=== PATIENT | female | born 1945 | race Caucasian/White ===

== ENCOUNTER 2022-02-25 05:40 | Inpatient (IN) ==
[2022-02-25] MEDS ORDERED: propofoL 200 MG/20 ML VIAL IV ONE (05:55)
[2022-02-25] MEDS ORDERED: ONDANSETRON 4 MG/2 ML VIAL ONE ×3 (05:55→10:28)
[2022-02-25] MEDS ORDERED: LIDOCAINE 2% 5 ML VIAL ONE (05:55)
[2022-02-25] MEDS ORDERED: ROCURONIUM 50 MG/5 ML VIAL IV ONE ×2 (05:55→08:01)
[2022-02-25] MEDS ORDERED: fentaNYL 100 MCG/2 ML VIAL ONE ×2 (05:57→08:12)
[2022-02-25] MEDS ORDERED: LACTATED RINGERS 1,000 ML IV SCH (06:00)
[2022-02-25] MEDS ORDERED: cefTRIAXone 1,000 MG in SODIUM CHLORIDE 0.9% 100 ML IV ONE (06:30)
[2022-02-25] MEDS ORDERED: ALVIMOPAN 12 MG CAPSULE PO ONE (06:30)
[2022-02-25] MEDS ORDERED: SCOPOLAMINE 1.5 MG PATCH TRANSDERM ONE (06:37)
[2022-02-25] MEDS ORDERED: MANNITOL 12.5 GM/50 ML VIAL IV ONE ×2 (06:37→07:05)
[2022-02-25] MEDS ORDERED: MIDAZOLAM 2 MG/2 ML VIAL ONE (06:55)
[2022-02-25] MEDS ORDERED: INDOCYANINE GREEN 25 MG VIAL IV ONE (07:46)
[2022-02-25 08:25] LABS: Hyaline Casts,Urine 3 /LPF (0-3); Mucus,Urine Occasional /LPF (Occasional); RBC,Urine 1 /HPF (0-4); Squamous Epithelial Cell,Urine Occasional /HPF (0-10)
[2022-02-25 08:28] LABS: Bilirubin,Urine Negative (Negative); Blood, Urine Trace mg/dL (Negative); Glucose,Urine (UA) Negative (Negative); Ketones,Urine Negative (Negative); Nitrite,Urine Negative (Negative); Protein,Urine Negative (Negative); Urine Appearance Clear (Clear); Urine Color Yellow (Yellow); Urine Specific Gravity 1.025 (1.001-1.035); Urine Urobilinogen 0.2 eU/dL (<2.0); Urine pH 5.5 (4.5-8.0)
[2022-02-25] MEDS ORDERED: LACTATED RINGERS 1,000 ML IV ONE ×2 (08:39→11:25)
[2022-02-25] MEDS ORDERED: SEVOFLURANE 1 UNIT/15 MINUTE INH ONE (08:39)
[2022-02-25] MEDS ORDERED: GLYCOPYRROLATE 0.4 MG/2 ML VIAL ONE ×2 (10:28→10:31)
[2022-02-25] MEDS ORDERED: NEOSTIGMINE 10 MG/10 ML VIAL ONE (10:28)
[2022-02-25] MEDS ORDERED: HYDROmorphone 1 MG/1 ML SYRINGE ONE (10:41)
[2022-02-25] MEDS ORDERED: ALBUTEROL 2.5 MG/3 ML NEB RESP TX ONE (10:56)
[2022-02-25] MEDS ORDERED: ONDANSETRON 4 MG/2 ML VIAL IV PRN (10:59)
[2022-02-25] MEDS ORDERED: ZOLPIDEM 5 MG TABLET PO PRN (11:03)
[2022-02-25] MEDS ORDERED: HYDROmorphone 1 MG/1 ML SYRINGE IV PRN (11:03)
[2022-02-25] MEDS: DEXTROSE 5% NACL 0.45% 1,000 ML IV SCH (13:55)
[2022-02-25] MEDS ORDERED: ALBUTEROL 1.25 MG/3 ML NEB RESP TX PRN (15:28)
[2022-02-25] MEDS ORDERED: BISACODYL 5 MG TABLET PO PRN (15:29)
[2022-02-25] MEDS ORDERED: MELATONIN 3 MG TABLET PO PRN (15:33)
[2022-02-25] MEDS: hydroCHLOROthiazide 12.5 MG CAPSULE PO SCH (16:50)
[2022-02-25] MEDS: PANTOPRAZOLE 40 MG TABLET PO SCH (20:36)
[2022-02-25] MEDS: ALVIMOPAN 12 MG CAPSULE PO SCH (20:36)
[2022-02-25] MEDS: NEBIVOLOL 10 MG TABLET PO SCH (21:08)
[2022-02-25] MEDS: AMMONIUM LACTATE 12% LOTION 240 ML BOTTLE TOP SCH (21:09)
[2022-02-26] MEDS: DEXTROSE 5% NACL 0.45% 1,000 ML IV SCH (00:09)
[2022-02-26 05:38] LABS: Basophils % 0.2 % (0.0-0.8); Eosinophils % 0.1 % (0.00-10.9); Hematocrit 30.1 VOL% (35.7-47.0); Hemoglobin 9.8 GM/DL (12.0-16.0); Immature Granulocytes % 0.4 %; Immature Granulocytes Absolute 0.04 #; Lymphocytes # 2.3 10*3/uL (1.4-4.0); Lymphocytes % 25.3 % (21.3-54.2); Mean Corpuscular HGB Conc 32.6 GM/DL (32-36); Mean Corpuscular Volume 97.7 FL (87-102); Monocytes # 0.8 10*3/uL (0.11-0.8); Monocytes % 8.2 % (1.7-12.7); Neutrophils % 65.8 % (38.7-73.9); Platelet Count 187 T/CUMM (130-400); Red Blood Count 3.08 MC/CUMM (3.8-5.5); Red Cell Distribution Width 14.1 % (9.3-17.3); White Blood Count 9.2 T/CUMM (4-12)
[2022-02-26 05:56] LABS: Calcium 7.5 MG/DL (8.5-10.1); Osmolality,Calculated 279.4 MOS/KG (273-304); Potassium 3.1 MMOL/L (3.5-5.1)
[2022-02-26] MEDS ORDERED: NON-FORMULARY MEDICATION (Vitamins-Lipotropics [Lipo-Flavonoid Plus] 200-100 mg Tablet) PO SCH (09:00)
[2022-02-26] MEDS: CALCIUM (CARBONATE)/VITAMIN D 600 MG-400 UNIT TABLET PO SCH (09:02)
[2022-02-26] MEDS: AMMONIUM LACTATE 12% LOTION 240 ML BOTTLE TOP SCH ×2 (09:02→23:20)
[2022-02-26] MEDS: ALVIMOPAN 12 MG CAPSULE PO SCH ×2 (09:02→20:50)
[2022-02-26] MEDS: ASCORBIC ACID 500 MG TABLET PO SCH (09:02)
[2022-02-26] MEDS: CHOLECALCIFEROL 400 UNIT TABLET PO SCH (09:02)
[2022-02-26] MEDS ORDERED: POTASSIUM CHLORIDE 20 MEQ TABLET PO PRN (09:46)
[2022-02-26] MEDS: POTASSIUM CHLORIDE 20 MEQ TABLET PO SCH ×2 (10:21→20:50)
[2022-02-26] MEDS ORDERED: CYANOCOBALAMIN 1000 MCG/1 ML VIAL IM SCH (11:30)
[2022-02-26] MEDS: NEBIVOLOL 10 MG TABLET PO SCH (20:49)
[2022-02-26] MEDS: PANTOPRAZOLE 40 MG TABLET PO SCH (20:50)
[2022-02-27 05:29] LABS: Basophils % 0.4 % (0.0-0.8); Eosinophils # 0.2 10*3/uL (0.0-0.87); Eosinophils % 1.7 % (0.00-10.9); Hematocrit 30.9 VOL% (35.7-47.0); Hemoglobin 9.9 GM/DL (12.0-16.0); Immature Granulocytes % 0.4 %; Immature Granulocytes Absolute 0.04 #; Lymphocytes # 1.9 10*3/uL (1.4-4.0); Lymphocytes % 17.4 % (21.3-54.2); Mean Corpuscular Volume 99.7 FL (87-102); Mean Platelet Volume 10.9 FL (9.6-12.0); Monocytes % 9.1 % (1.7-12.7); Platelet Count 180 T/CUMM (130-400); Red Cell Distribution Width 13.8 % (9.3-17.3); White Blood Count 10.9 T/CUMM (4-12)
[2022-02-27 05:59] LABS: Albumin 2.7 G/DL (3.4-5.0); Bilirubin,Total 0.9 MG/DL (0.20-1.00); Calcium 8.4 MG/DL (8.5-10.1); Osmolality,Calculated 278.5 MOS/KG (273-304); Potassium 3.7 MMOL/L (3.5-5.1); Total Protein 5.9 G/DL (6.4-8.2)
[2022-02-27] MEDS: CALCIUM (CARBONATE)/VITAMIN D 600 MG-400 UNIT TABLET PO SCH (08:39)
[2022-02-27] MEDS: CHOLECALCIFEROL 400 UNIT TABLET PO SCH (08:39)
[2022-02-27] MEDS: ALVIMOPAN 12 MG CAPSULE PO SCH (08:40)
[2022-02-27] MEDS: POTASSIUM CHLORIDE 20 MEQ TABLET PO SCH (08:40)
[2022-02-27] MEDS: ASCORBIC ACID 500 MG TABLET PO SCH (08:40)
[2022-02-27] MEDS: hydroCHLOROthiazide 12.5 MG CAPSULE PO SCH (08:40)
[2022-02-27] MEDS ORDERED: NON-FORMULARY MEDICATION (Vitamins-Lipotropics [Lipo-Flavonoid Plus] 200-100 mg Tablet) PO SCH (09:00)
[2022-02-27] MEDS: AMMONIUM LACTATE 12% LOTION 240 ML BOTTLE TOP SCH (09:26)
[2022-02-27] MEDS ORDERED: LEVOFLOXACIN 500 MG TABLET PO SCH (11:00)
[2022-02-27] MEDS: IPRATROPIUM 500 MCG/2.5 ML NEB RESP TX SCH ×2 (11:14→14:20)
[2022-02-27 12:14] VITALS: BP 116/47
[2022-06-11] MEDS ORDERED: DENOSUMAB 60 MG/ML SYRINGE SUBCUT SCH (16:00)
== END 2022-02-27 14:35 | disposition home or self-care (01) | DRG 657 ==
LOC: N.OR 05:40 → N.SDSINP 05:41 → N.3E 13:44
PROVIDERS: ADMIT Urology; ATTEND Urology